=== PATIENT | female | born 1970 | race Caucasian/White ===

== ENCOUNTER 2017-10-17 19:32 | Inpatient (IN) | payer MEDICAID ==
[2017-10-17] MEDS: morphine 2 MG INJ IV (19:58)
[2017-10-17] MEDS: ONDANSETRON 4 MG INJ IV (19:58)
[2017-10-17] MEDS: LORAZEPAM 2 MG INJ IV (19:59)
[2017-10-17] MEDS: NITROGLYCERIN 2% 1 GM OINT PKT TD (19:59)
[2017-10-17] MEDS: ASPIRIN 81 MG TAB PO (20:00)
[2017-10-17 20:23] LABS: ADD MAN DIFF? NO
[2017-10-17 20:25] LABS: BASOPHIL # 0.1 10^3/ul (0.0-0.1); BASOPHILS % 0.4 % (0.0-2.0); EOSINOPHILS # 0.2 10^3/ul (0.0-0.5); EOSINOPHILS % 1.2 % (0.0-7.0); HEMATOCRIT 27.9 % (37.0-47.0); LYMPHOCYTES # 1.6 10^3/ul (0.8-2.9); LYMPHOCYTES % 12.6 % (15.0-51.0); MEAN CORPUSCULAR HEMOGLOBIN 30.5 pg (29.0-33.0); MEAN CORPUSCULAR HGB CONC 32.3 g/dl (32.0-37.0); MEAN CORPUSCULAR VOLUME 94.6 fl (82.0-101.0); MEAN PLATELET VOLUME 10.9 fl (7.4-10.4); MONOCYTE # 0.5 10^3/ul (0.3-0.9); MONOCYTES % 3.6 % (0.0-11.0); NEUTROPHIL # 10.6 10^3/ul (1.6-7.5); NEUTROPHILS % 81.7 % (39.0-77.0); PLATELET COUNT 234 10^3/UL (140-415); RED BLOOD COUNT 2.95 10^6/ul (4.20-5.40); RED CELL DISTRIBUTION WIDTH 12.3 % (11.5-14.5)
[2017-10-17 20:25] LABS: WHITE BLOOD COUNT 12.9 10^3/ul (4.8-10.8)
[2017-10-17 20:42] LABS: ALANINE AMINOTRANSFERASE 10 IU/L (13-69); ALBUMIN 4.1 g/dl (3.3-4.9); ALBUMIN/GLOBULIN RATIO 1.13; ALKALINE PHOSPHATASE 57 IU/L (42-121); ANION GAP 26 (8-16); ASPARTATE AMINO TRANSFERASE 22 IU/L (15-46); BLOOD UREA NITROGEN 91 mg/dl (7-20); CALCIUM 6.6 mg/dl (8.4-10.2); CARBON DIOXIDE 13 mmol/L (21-31); CHLORIDE 105 mmol/L (97-110); GLUCOSE 105 mg/dl (70-220); POTASSIUM 5.3 mmol/L (3.5-5.1); SODIUM 139 mmol/L (135-144); TOTAL PROTEIN 7.7 g/dl (6.1-8.1)
[2017-10-17 20:51] LABS: CREATININE 14.16 mg/dl (0.44-1.00)
[2017-10-17 20:54] LABS: TROPONIN-I 0.048 ng/ml (0.000-0.120)
[2017-10-17] MEDS: NICARDipine HCL 30 MG CAPSULE PO (21:05)
[2017-10-17] MEDS: ENOXAPARIN 100 MG/ML SYG SC (21:06)
[2017-10-17 21:11] LABS: B-TYPE NATRIURETIC PEPTIDE 55300 PG/ML (0-125)
[2017-10-17 21:52] LABS: D-DIMER 1729.85 ng/ml (<460)
[2017-10-17] MEDS: FUROSEMIDE 40 MG INJ IV (22:11)
[2017-10-17] MEDS ORDERED: ONDANSETRON 4 MG INJ IV (23:00)
[2017-10-17 23:04] LABS: COMPLEMENT C3 130 mg/dl (88-165); COMPLEMENT C4 45 mg/dl (14-44)
[2017-10-17] MEDS ORDERED: ALBUTEROL/IPRATROPIUM (NEB) 3 ML AMP NEB (23:30)
[2017-10-17] MEDS ORDERED: METOCLOPRAMIDE 10 MG INJ IV (23:30)
[2017-10-17] MEDS ORDERED: BISACODYL (EC) 5 MG TAB PO (23:30)
[2017-10-17] MEDS ORDERED: DOCUSATE SODIUM 100 MG CAP PO (23:30)
[2017-10-17 23:34] LABS: ERYTHROCYTE SEDIMENTATION RATE 130 mm/Hr (0-20)
[2017-10-18] MEDS ORDERED: hydrALAzine 20 MG INJ IV (01:30)
[2017-10-18 05:37] LABS: WHITE BLOOD COUNT 11.1 10^3/ul (4.8-10.8)
[2017-10-18 05:37] LABS: ADD MAN DIFF? NO; BASOPHILS % 0.2 % (0.0-2.0); EOSINOPHILS % 0.1 % (0.0-7.0); HEMATOCRIT 23.9 % (37.0-47.0); HEMOGLOBIN 7.8 g/dl (12.0-16.0); LYMPHOCYTES # 0.9 10^3/ul (0.8-2.9); LYMPHOCYTES % 8.1 % (15.0-51.0); MEAN CORPUSCULAR HEMOGLOBIN 30.7 pg (29.0-33.0); MEAN CORPUSCULAR HGB CONC 32.6 g/dl (32.0-37.0); MEAN CORPUSCULAR VOLUME 94.1 fl (82.0-101.0); MEAN PLATELET VOLUME 10.8 fl (7.4-10.4); MONOCYTE # 0.5 10^3/ul (0.3-0.9); MONOCYTES % 4.3 % (0.0-11.0); NEUTROPHIL # 9.6 10^3/ul (1.6-7.5); NEUTROPHILS % 86.8 % (39.0-77.0); PLATELET COUNT 192 10^3/UL (140-415); RED BLOOD COUNT 2.54 10^6/ul (4.20-5.40); RED CELL DISTRIBUTION WIDTH 12.4 % (11.5-14.5)
[2017-10-18 05:39] LABS: IRON 50 ug/dl (35-150)
[2017-10-18 05:42] LABS: HAAIG REFLEX REFLEX FILED
[2017-10-18 05:48] LABS: % IRON SATURATION 18 % SAT (22-52); TOTAL IRON BINDING CAPACITY 282 ug/dl (241-421)
[2017-10-18] MEDS: FUROSEMIDE 40 MG INJ IV ×2 (05:50→18:16)
[2017-10-18] MEDS: ACETAMINOPHEN 325 MG TAB PO (05:51)
[2017-10-18] MEDS: PANTOPRAZOLE 40 MG INJ IV (05:51)
[2017-10-18] MEDS ORDERED: HEPARIN 1000 UNITS/ML 10 ML INJ IV ×2 (07:00)
[2017-10-18 07:35] LABS: ALANINE AMINOTRANSFERASE 21 IU/L (13-69); ALBUMIN 3.1 g/dl (3.3-4.9); ALKALINE PHOSPHATASE 57 IU/L (42-121); ANION GAP 23 (8-16); ASPARTATE AMINO TRANSFERASE 14 IU/L (15-46); BLOOD UREA NITROGEN 94 mg/dl (7-20); CALCIUM 6.1 mg/dl (8.4-10.2); CARBON DIOXIDE 13 mmol/L (21-31); CHLORIDE 109 mmol/L (97-110); GLUCOSE 102 mg/dl (70-220); PHOSPHORUS 10.7 mg/dl (2.5-4.9); POTASSIUM 5.1 mmol/L (3.5-5.1); SODIUM 140 mmol/L (135-144); TOTAL PROTEIN 5.9 g/dl (6.1-8.1)
[2017-10-18 08:05] LABS: INR 1.09; PROTIME 14.3 Sec (11.9-14.9); PT RATIO 1.1
[2017-10-18 08:06] LABS: HEPATITIS B SURFACE ANTIGEN NEGATIVE (NEGATIVE); PARTIAL THROMBOPLASTIN TIME 37.1 Sec (25.0-35.0)
[2017-10-18 08:08] LABS: CREATININE 14.48 mg/dl (0.44-1.00)
[2017-10-18 08:24] LABS: HEPATITIS B CORE ANTIBODY NEGATIVE (NEGATIVE); HEPATITIS C VIRAL ANTIBODY NEGATIVE (NEGATIVE)
[2017-10-18] MEDS: HEPARIN 1000 UNITS/ML 10 ML INJ IV (08:44)
[2017-10-18] MEDS: HEPARIN 25000 UNITS/250 ML 250 ML IV (08:50)
[2017-10-18 13:54] LABS: Allen Test ACCEPTAB; Arterial Base Excess -12.5 mmol/L (-3.0-3); Arterial Blood Gas Oxygen Sat 92.8 mmHG (95.0-98.0); Arterial COHb 0.3 % (0.0-3.0); Arterial Fraction of Oxyhgb 92.3 % (93.0-99.0); Arterial HCO3 12.8 mmol/L (22.0-26.0); Arterial MetHb 0.2 % (0.0-1.5); Arterial Total Hemglobin 8.6 g/dl (12.0-18.0); Arterial pCO2 27.5 mmhg (35-45); MODE ROOM AIR; Site Right Radial
[2017-10-18] MEDS: DEXTROSE 5% 500 ML IV (14:19)
[2017-10-18] MEDS: LORAZEPAM 0.5 MG TAB PO (14:27)
[2017-10-18] MEDS: METOPROLOL 25 MG TAB PO ×2 (14:27→21:44)
[2017-10-18] MEDS: AMLODIPINE 10 MG TAB PO (14:27)
[2017-10-18] MEDS: SODIUM BICARBONATE (IV ADD) 100 MEQ in DEXTROSE 5% 900 ML IV (14:30)
[2017-10-18 15:21] LABS: LACTIC ACID 1.1 mmol/L (0.5-2.0)
[2017-10-18 15:50] LABS: PARTIAL THROMBOPLASTIN TIME > 180.0 Sec (25.0-35.0)
[2017-10-18 18:15] LABS: ADD UMIC YES; UR ASCORBIC ACID NEGATIVE (NEGATIVE); UR BILIRUBIN (Dip) NEGATIVE (NEGATIVE); UR BLOOD (Dip) NEGATIVE (NEGATIVE); UR CLARITY SLIGHTLY CLOUDY (CLEAR); UR COLOR YELLOW (YELLOW); UR GLUCOSE (Dip) 3+ mg/dL (NEGATIVE); UR KETONES (Dip) NEGATIVE (NEGATIVE); UR LEUKOCYTE ESTERASE (Dip) NEGATIVE Leu/ul (NEGATIVE); UR NITRITE (Dip) NEGATIVE (NEGATIVE); UR RBC 7 /HPF (0-5); UR SPECIFIC GRAVITY (Dip) 1.013 (1.003-1.030); UR SQUAMOUS EPITHELIAL CELL MODERATE /HPF (FEW); UR TOTAL PROTEIN (Dip) 3+ mg/dl (NEGATIVE); UR UROBILINOGEN (Dip) NEGATIVE (NEGATIVE); UR WBC 9 /HPF (0-5)
[2017-10-18 18:19] LABS: CREATININE,URINE RANDOM 63.14 mg/dl (20-320)
[2017-10-18 18:21] LABS: SODIUM,URINE RANDOM 40 mmol/L (30-90)
[2017-10-18 18:21] LABS: CREATININE,URINE RANDOM 64.36 mg/dl (20-320)
[2017-10-18 18:30] LABS: PROTEIN URINE > 600.0 mg/dl (0.0-11.9)
[2017-10-18 19:04] LABS: OSMOLALITY,URINE 315 mOsm/kg (250-1200)
[2017-10-19] MEDS ORDERED: ALBUMIN HUMAN 25% 100 ML IV (00:30)
[2017-10-19] MEDS: DIPHENHYDRAMINE 50 MG CAP PO (01:15)
[2017-10-19] MEDS: HEPARIN 1000 UNITS/ML 10 ML INJ CATHETER ×2 (02:45→20:57)
[2017-10-19] MEDS: FUROSEMIDE 40 MG INJ IV ×2 (06:28→21:09)
[2017-10-19] MEDS: ACETAMINOPHEN 650MG/20.3ML CUP PO (06:31)
[2017-10-19 07:27] LABS: ADD MAN DIFF? NO
[2017-10-19 07:32] LABS: WHITE BLOOD COUNT 7.6 10^3/ul (4.8-10.8)
[2017-10-19 07:32] LABS: BASOPHILS % 0.4 % (0.0-2.0); EOSINOPHILS # 0.1 10^3/ul (0.0-0.5); EOSINOPHILS % 1.2 % (0.0-7.0); HEMATOCRIT 22.8 % (37.0-47.0); HEMOGLOBIN 7.7 g/dl (12.0-16.0); LYMPHOCYTES % 12.7 % (15.0-51.0); MEAN CORPUSCULAR HEMOGLOBIN 30.9 pg (29.0-33.0); MEAN CORPUSCULAR HGB CONC 33.8 g/dl (32.0-37.0); MEAN CORPUSCULAR VOLUME 91.6 fl (82.0-101.0); MEAN PLATELET VOLUME 10.4 fl (7.4-10.4); MONOCYTE # 0.4 10^3/ul (0.3-0.9); MONOCYTES % 5.6 % (0.0-11.0); NEUTROPHIL # 6.1 10^3/ul (1.6-7.5); NEUTROPHILS % 79.8 % (39.0-77.0); PLATELET COUNT 188 10^3/UL (140-415); RED BLOOD COUNT 2.49 10^6/ul (4.20-5.40); RED CELL DISTRIBUTION WIDTH 12.4 % (11.5-14.5)
[2017-10-19 07:40] LABS: ANION GAP 16 (8-16); BLOOD UREA NITROGEN 62 mg/dl (7-20); CALCIUM 6.7 mg/dl (8.4-10.2); CARBON DIOXIDE 23 mmol/L (21-31); CHLORIDE 101 mmol/L (97-110); CREATININE 11.43 mg/dl (0.44-1.00); GLUCOSE 122 mg/dl (70-220); MAGNESIUM 1.4 mg/dl (1.7-2.5); PHOSPHORUS 8.1 mg/dl (2.5-4.9); POTASSIUM 3.4 mmol/L (3.5-5.1); SODIUM 137 mmol/L (135-144)
[2017-10-19 08:48] LABS: INR 1.09; PROTIME 14.2 Sec (11.9-14.9); PT RATIO 1.1
[2017-10-19 08:49] LABS: PARTIAL THROMBOPLASTIN TIME 33.2 Sec (25.0-35.0)
[2017-10-19] MEDS: MULTIVIT/CA CARB/B CMPLX/FA TAB PO (10:36)
[2017-10-19] MEDS: AMLODIPINE 10 MG TAB PO (10:36)
[2017-10-19] MEDS: METOPROLOL 25 MG TAB PO (10:37)
[2017-10-19] MEDS: MAGNESIUM SULFATE 2 GM/50 ML 50 ML IVPB (10:46)
[2017-10-19] MEDS: POTASSIUM CHLORIDE (SR) 20 MEQ TAB PO (10:46)
[2017-10-19] MEDS ORDERED: SOD CHLORIDE 0.9% 1,000 ML IV (12:13)
[2017-10-19] MEDS ORDERED: MANNITOL 25% 50 ML IV (12:30)
[2017-10-19] MEDS ORDERED: ALBUMIN HUMAN 25% 50 ML IV (12:30)
[2017-10-19] MEDS: MAGNESIUM OXIDE 400 MG TAB NGT ×2 (13:03→21:10)
[2017-10-19 14:17] LABS: ANA SCREEN POSITIVE (NEGATIVE)
[2017-10-19] MEDS: CALCIUM ACETATE 667 MG CAP PO (17:18)
[2017-10-19] MEDS: DIPHENHYDRAMINE 25 MG CAP PO (17:24)
[2017-10-19 18:57] LABS: CREATINE KINASE 125 IU/L (23-200)
[2017-10-19 19:10] LABS: CK INDEX 1.3; CK-MB 1.67 ng/ml (0.0-2.4)
[2017-10-19 19:15] LABS: TROPONIN-I 0.271 ng/ml (0.000-0.120)
[2017-10-19] MEDS: LOSARTAN 25 MG TAB PO (21:10)
[2017-10-20 00:57] LABS: CREATINE KINASE 103 IU/L (23-200)
[2017-10-20 01:09] LABS: CK INDEX 1.2; CK-MB 1.24 ng/ml (0.0-2.4)
[2017-10-20 01:18] LABS: TROPONIN-I 0.237 ng/ml (0.000-0.120)
[2017-10-20] MEDS: FUROSEMIDE 40 MG INJ IV ×2 (05:07→17:31)
[2017-10-20] MEDS: CALCIUM ACETATE 667 MG CAP PO ×3 (07:55→17:27)
[2017-10-20 07:58] LABS: ANION GAP 16 (8-16); BLOOD UREA NITROGEN 42 mg/dl (7-20); CALCIUM 8.2 mg/dl (8.4-10.2); CARBON DIOXIDE 27 mmol/L (21-31); CHLORIDE 102 mmol/L (97-110); CREATININE 9.01 mg/dl (0.44-1.00); GLUCOSE 104 mg/dl (70-220); MAGNESIUM 1.8 mg/dl (1.7-2.5); PHOSPHORUS 6.4 mg/dl (2.5-4.9); POTASSIUM 4.4 mmol/L (3.5-5.1); SODIUM 141 mmol/L (135-144)
[2017-10-20] MEDS: MULTIVIT/CA CARB/B CMPLX/FA TAB PO (08:06)
[2017-10-20] MEDS: MAGNESIUM OXIDE 400 MG TAB NGT ×2 (08:07→21:09)
[2017-10-20] MEDS: AMLODIPINE 10 MG TAB PO (08:07)
[2017-10-20] MEDS: LOSARTAN 25 MG TAB PO ×2 (08:07→21:09)
[2017-10-20 08:11] LABS: ANA PATTERN NUCLEOLAR
[2017-10-20 09:04] LABS: HIV 1&2 ANTIBODY NEGATIVE (NEGATIVE)
[2017-10-20 09:45] LABS: CREATINE KINASE 101 IU/L (23-200)
[2017-10-20 09:49] LABS: CK-MB 1.02 ng/ml (0.0-2.4)
[2017-10-20 09:53] LABS: TROPONIN-I 0.251 ng/ml (0.000-0.120)
[2017-10-20] MEDS: REGADENOSON 0.4 MG/5 ML SYG (11:40)
[2017-10-20] MEDS: ASPIRIN 81 MG TAB PO (13:12)
[2017-10-20] MEDS: EPOETIN 3000 UNITS/1 ML INJ (ESRD) SC (17:34)
[2017-10-21] MEDS: FUROSEMIDE 40 MG INJ IV ×2 (05:43→18:01)
[2017-10-21] MEDS: CALCIUM ACETATE 667 MG CAP PO ×3 (08:22→18:00)
[2017-10-21] MEDS: MULTIVIT/CA CARB/B CMPLX/FA TAB PO (08:38)
[2017-10-21] MEDS: LOSARTAN 25 MG TAB PO (08:38)
[2017-10-21] MEDS: CALCITRIOL 0.25 MCG CAP PO (08:38)
[2017-10-21] MEDS: MAGNESIUM OXIDE 400 MG TAB NGT ×2 (08:39→22:25)
[2017-10-21] MEDS: AMLODIPINE 10 MG TAB PO (08:39)
[2017-10-21] MEDS: ASPIRIN 81 MG TAB PO (08:39)
[2017-10-21 10:28] LABS: ADD MAN DIFF? NO
[2017-10-21 10:30] LABS: BASOPHILS % 0.3 % (0.0-2.0); EOSINOPHILS # 0.2 10^3/ul (0.0-0.5); EOSINOPHILS % 2.9 % (0.0-7.0); HEMATOCRIT 22.9 % (37.0-47.0); HEMOGLOBIN 7.4 g/dl (12.0-16.0); LYMPHOCYTES # 0.9 10^3/ul (0.8-2.9); LYMPHOCYTES % 15.4 % (15.0-51.0); MEAN CORPUSCULAR HEMOGLOBIN 30.3 pg (29.0-33.0); MEAN CORPUSCULAR HGB CONC 32.3 g/dl (32.0-37.0); MEAN CORPUSCULAR VOLUME 93.9 fl (82.0-101.0); MEAN PLATELET VOLUME 10.4 fl (7.4-10.4); MONOCYTE # 0.4 10^3/ul (0.3-0.9); MONOCYTES % 6.8 % (0.0-11.0); NEUTROPHIL # 4.4 10^3/ul (1.6-7.5); NEUTROPHILS % 74.3 % (39.0-77.0); PLATELET COUNT 189 10^3/UL (140-415); RED BLOOD COUNT 2.44 10^6/ul (4.20-5.40); RED CELL DISTRIBUTION WIDTH 12.2 % (11.5-14.5)
[2017-10-21 10:30] LABS: WHITE BLOOD COUNT 5.9 10^3/ul (4.8-10.8)
[2017-10-21 10:57] LABS: ANION GAP 15 (8-16); BLOOD UREA NITROGEN 60 mg/dl (7-20); CALCIUM 7.9 mg/dl (8.4-10.2); CARBON DIOXIDE 25 mmol/L (21-31); CHLORIDE 102 mmol/L (97-110); CREATININE 11.55 mg/dl (0.44-1.00); GLUCOSE 177 mg/dl (70-220); POTASSIUM 3.9 mmol/L (3.5-5.1); SODIUM 138 mmol/L (135-144)
[2017-10-21] MEDS ORDERED: SODIUM CHLORIDE 0.9% 1L BAG IV (18:00)
[2017-10-21] MEDS ORDERED: ALBUMIN HUMAN 25% 100 ML IV (18:00)
[2017-10-21] MEDS: LOSARTAN 50 MG TAB PO (21:00)
[2017-10-22] MEDS: DIPHENHYDRAMINE 25 MG CAP PO (04:09)
[2017-10-22 05:34] LABS: ANION GAP 15 (8-16); BLOOD UREA NITROGEN 73 mg/dl (7-20); CALCIUM 7.7 mg/dl (8.4-10.2); CARBON DIOXIDE 23 mmol/L (21-31); CHLORIDE 104 mmol/L (97-110); CREATININE 11.77 mg/dl (0.44-1.00); GLUCOSE 89 mg/dl (70-220); PHOSPHORUS 6.9 mg/dl (2.5-4.9); POTASSIUM 4.3 mmol/L (3.5-5.1); SODIUM 138 mmol/L (135-144)
[2017-10-22] MEDS: FUROSEMIDE 40 MG INJ IV ×2 (06:00→17:25)
[2017-10-22] MEDS: HEPARIN 1000 UNITS/ML 10 ML INJ CATHETER (08:12)
[2017-10-22] MEDS: MULTIVIT/CA CARB/B CMPLX/FA TAB PO (09:00)
[2017-10-22] MEDS: CALCITRIOL 0.25 MCG CAP PO (09:29)
[2017-10-22] MEDS: ASPIRIN 81 MG TAB PO (09:29)
[2017-10-22] MEDS: MAGNESIUM OXIDE 400 MG TAB NGT ×2 (09:30→20:31)
[2017-10-22] MEDS: CALCIUM ACETATE 667 MG CAP PO ×3 (09:30→18:19)
[2017-10-22] MEDS: AMLODIPINE 10 MG TAB PO (12:47)
[2017-10-22] MEDS: ACETAMINOPHEN 650MG/20.3ML CUP PO (12:48)
[2017-10-22] MEDS: LOSARTAN 50 MG TAB PO ×2 (12:48→20:31)
[2017-10-22] MEDS: EPOETIN 4000 UNITS/1 ML INJ (ESRD) SC (17:16)
[2017-10-22] MEDS: FAMOTIDINE 20 MG TAB PO (18:23)
[2017-10-23] MEDS: FUROSEMIDE 40 MG INJ IV ×2 (05:36→17:49)
[2017-10-23] MEDS: CALCITRIOL 0.25 MCG CAP PO (08:47)
[2017-10-23] MEDS: FAMOTIDINE 20 MG TAB PO (08:47)
[2017-10-23] MEDS: ASPIRIN 81 MG TAB PO (08:47)
[2017-10-23] MEDS: MULTIVIT/CA CARB/B CMPLX/FA TAB PO (08:48)
[2017-10-23] MEDS: CALCIUM ACETATE 667 MG CAP PO ×3 (08:48→17:49)
[2017-10-23] MEDS: MAGNESIUM OXIDE 400 MG TAB NGT ×2 (08:48→21:28)
[2017-10-23] MEDS: AMLODIPINE 10 MG TAB PO (08:49)
[2017-10-23] MEDS: LOSARTAN 50 MG TAB PO ×2 (13:13→21:30)
[2017-10-23] MEDS ORDERED: AL HYDROX/MG HYDROX/SIMETH 30 ML CUP PO (21:00)
[2017-10-23] MEDS: PANTOPRAZOLE (EC) 40 MG TAB PO (21:36)
[2017-10-23] MEDS: DIPHENHYDRAMINE 25 MG CAP PO (23:50)
[2017-10-24 05:29] LABS: ADD MAN DIFF? NO
[2017-10-24 05:33] LABS: BASOPHILS % 0.5 % (0.0-2.0); EOSINOPHILS # 0.2 10^3/ul (0.0-0.5); EOSINOPHILS % 2.5 % (0.0-7.0); HEMATOCRIT 23.8 % (37.0-47.0); HEMOGLOBIN 7.8 g/dl (12.0-16.0); LYMPHOCYTES # 1.8 10^3/ul (0.8-2.9); LYMPHOCYTES % 20.9 % (15.0-51.0); MEAN CORPUSCULAR HEMOGLOBIN 31.1 pg (29.0-33.0); MEAN CORPUSCULAR HGB CONC 32.8 g/dl (32.0-37.0); MEAN CORPUSCULAR VOLUME 94.8 fl (82.0-101.0); MEAN PLATELET VOLUME 10.7 fl (7.4-10.4); MONOCYTE # 0.6 10^3/ul (0.3-0.9); MONOCYTES % 6.5 % (0.0-11.0); NEUTROPHILS % 69.4 % (39.0-77.0); PLATELET COUNT 224 10^3/UL (140-415); RED BLOOD COUNT 2.51 10^6/ul (4.20-5.40)
[2017-10-24 05:33] LABS: WHITE BLOOD COUNT 8.6 10^3/ul (4.8-10.8)
[2017-10-24 05:58] LABS: ANION GAP 18 (8-16); BLOOD UREA NITROGEN 67 mg/dl (7-20); CALCIUM 8.8 mg/dl (8.4-10.2); CARBON DIOXIDE 24 mmol/L (21-31); CHLORIDE 101 mmol/L (97-110); CREATININE 10.44 mg/dl (0.44-1.00); GLUCOSE 91 mg/dl (70-220); POTASSIUM 5.3 mmol/L (3.5-5.1); SODIUM 138 mmol/L (135-144)
[2017-10-24] MEDS: PANTOPRAZOLE (EC) 40 MG TAB PO (07:01)
[2017-10-24] MEDS: FUROSEMIDE 40 MG INJ IV ×2 (07:03→21:06)
[2017-10-24] MEDS: ASPIRIN 81 MG TAB PO (09:29)
[2017-10-24] MEDS: MAGNESIUM OXIDE 400 MG TAB NGT ×2 (09:29→21:04)
[2017-10-24] MEDS: CALCITRIOL 0.25 MCG CAP PO (09:29)
[2017-10-24] MEDS: FAMOTIDINE 20 MG TAB PO (09:30)
[2017-10-24] MEDS: MULTIVIT/CA CARB/B CMPLX/FA TAB PO (09:30)
[2017-10-24] MEDS: AMLODIPINE 10 MG TAB PO (09:30)
[2017-10-24] MEDS: CALCIUM ACETATE 667 MG CAP PO ×3 (09:30→21:03)
[2017-10-24] MEDS: LOSARTAN 50 MG TAB PO ×2 (09:31→21:05)
[2017-10-24] MEDS ORDERED: MAGNESIUM HYDROXIDE 30ML CUP PO (12:30)
[2017-10-24] MEDS ORDERED: LIDOCAINE 1% (MDV) 20 ML INJ (12:54)
[2017-10-24] MEDS ORDERED: HEPARIN 1000 UNITS/ML 10 ML INJ (12:54)
[2017-10-24] MEDS ORDERED: MIDAZOLAM 1 MG/ML 2 ML INJ (12:55)
[2017-10-24] MEDS ORDERED: FENTAnyl 50 MCG/ML VIAL (12:55)
[2017-10-24] MEDS: DIPHENHYDRAMINE 25 MG CAP PO (16:05)
[2017-10-24] MEDS: HEPARIN 1000 UNITS/ML 10 ML INJ CATHETER (19:47)
[2017-10-24] MEDS ORDERED: VITAMIN A & D 5 GM OINT PACKET TOP (22:19)
[2017-10-25 05:51] LABS: ADD MAN DIFF? NO
[2017-10-25 06:02] LABS: WHITE BLOOD COUNT 8.6 10^3/ul (4.8-10.8)
[2017-10-25 06:02] LABS: BASOPHILS % 0.4 % (0.0-2.0); EOSINOPHILS # 0.2 10^3/ul (0.0-0.5); EOSINOPHILS % 2.3 % (0.0-7.0); HEMATOCRIT 25.3 % (37.0-47.0); LYMPHOCYTES # 1.5 10^3/ul (0.8-2.9); MEAN CORPUSCULAR HEMOGLOBIN 29.9 pg (29.0-33.0); MEAN CORPUSCULAR HGB CONC 31.6 g/dl (32.0-37.0); MEAN CORPUSCULAR VOLUME 94.4 fl (82.0-101.0); MEAN PLATELET VOLUME 10.8 fl (7.4-10.4); MONOCYTE # 0.5 10^3/ul (0.3-0.9); MONOCYTES % 5.8 % (0.0-11.0); NEUTROPHIL # 6.3 10^3/ul (1.6-7.5); NEUTROPHILS % 74.1 % (39.0-77.0); PLATELET COUNT 236 10^3/UL (140-415); RED BLOOD COUNT 2.68 10^6/ul (4.20-5.40); RED CELL DISTRIBUTION WIDTH 12.2 % (11.5-14.5)
[2017-10-25] MEDS: PANTOPRAZOLE (EC) 40 MG TAB PO (06:17)
[2017-10-25] MEDS: FUROSEMIDE 40 MG INJ IV (06:19)
[2017-10-25 06:22] LABS: ALANINE AMINOTRANSFERASE 17 IU/L (13-69); ALBUMIN 3.2 g/dl (3.3-4.9); ALKALINE PHOSPHATASE 55 IU/L (42-121); ASPARTATE AMINO TRANSFERASE 13 IU/L (15-46)
[2017-10-25 06:31] LABS: MAGNESIUM 2.1 mg/dl (1.7-2.5)
[2017-10-25 07:56] LABS: LIPASE 221 U/L (23-300)
[2017-10-25] MEDS: CALCIUM ACETATE 667 MG CAP PO ×3 (08:18→18:06)
[2017-10-25] MEDS: ASPIRIN 81 MG TAB PO (08:18)
[2017-10-25] MEDS: AMLODIPINE 10 MG TAB PO (08:18)
[2017-10-25] MEDS: MULTIVIT/CA CARB/B CMPLX/FA TAB PO (08:19)
[2017-10-25] MEDS: FAMOTIDINE 20 MG TAB PO (08:19)
[2017-10-25] MEDS: CALCITRIOL 0.25 MCG CAP PO (08:19)
[2017-10-25] MEDS: LOSARTAN 50 MG TAB PO ×2 (08:19→21:24)
[2017-10-25] MEDS: MAGNESIUM OXIDE 400 MG TAB NGT ×2 (08:20→21:25)
[2017-10-25] MEDS ORDERED: HEPARIN 1000 UNITS/ML 10 ML INJ CATHETER (11:00)
[2017-10-25] MEDS ORDERED: SODIUM CHLORIDE 0.9% 1L BAG IV (11:00)
[2017-10-25] MEDS ORDERED: ALBUMIN HUMAN 25% 50 ML IV (11:00)
[2017-10-25] MEDS: EPOETIN 4000 UNITS/1 ML INJ (ESRD) SC ×2 (17:00→18:09)
[2017-10-26 06:15] LABS: ADD MAN DIFF? NO
[2017-10-26] MEDS: PANTOPRAZOLE (EC) 40 MG TAB PO (06:16)
[2017-10-26 06:35] LABS: BASOPHILS % 0.5 % (0.0-2.0); EOSINOPHILS # 0.2 10^3/ul (0.0-0.5); HEMATOCRIT 25.8 % (37.0-47.0); HEMOGLOBIN 8.2 g/dl (12.0-16.0); LYMPHOCYTES # 1.6 10^3/ul (0.8-2.9); LYMPHOCYTES % 19.3 % (15.0-51.0); MEAN CORPUSCULAR HEMOGLOBIN 30.1 pg (29.0-33.0); MEAN CORPUSCULAR HGB CONC 31.8 g/dl (32.0-37.0); MEAN CORPUSCULAR VOLUME 94.9 fl (82.0-101.0); MEAN PLATELET VOLUME 10.8 fl (7.4-10.4); MONOCYTE # 0.5 10^3/ul (0.3-0.9); MONOCYTES % 5.5 % (0.0-11.0); NEUTROPHIL # 6.1 10^3/ul (1.6-7.5); NEUTROPHILS % 72.5 % (39.0-77.0); PLATELET COUNT 244 10^3/UL (140-415); RED BLOOD COUNT 2.72 10^6/ul (4.20-5.40); RED CELL DISTRIBUTION WIDTH 12.4 % (11.5-14.5)
[2017-10-26 06:35] LABS: WHITE BLOOD COUNT 8.4 10^3/ul (4.8-10.8)
[2017-10-26 06:38] LABS: MAGNESIUM 2.5 mg/dl (1.7-2.5)
[2017-10-26 06:38] LABS: PHOSPHORUS 6.7 mg/dl (2.5-4.9)
[2017-10-26 07:03] LABS: ANION GAP 18 (8-16); BLOOD UREA NITROGEN 66 mg/dl (7-20); CALCIUM 9.2 mg/dl (8.4-10.2); CARBON DIOXIDE 25 mmol/L (21-31); CHLORIDE 100 mmol/L (97-110); CREATININE 10.11 mg/dl (0.44-1.00); GLUCOSE 92 mg/dl (70-220); POTASSIUM 4.6 mmol/L (3.5-5.1); SODIUM 138 mmol/L (135-144)
[2017-10-26] MEDS: LOSARTAN 50 MG TAB PO ×2 (09:00→20:32)
[2017-10-26] MEDS: AMLODIPINE 10 MG TAB PO (09:00)
[2017-10-26] MEDS: MAGNESIUM OXIDE 400 MG TAB NGT (09:08)
[2017-10-26] MEDS: FAMOTIDINE 20 MG TAB PO (09:08)
[2017-10-26] MEDS: CALCITRIOL 0.25 MCG CAP PO (09:09)
[2017-10-26] MEDS: MULTIVIT/CA CARB/B CMPLX/FA TAB PO (09:10)
[2017-10-26] MEDS: ASPIRIN 81 MG TAB PO (09:10)
[2017-10-26] MEDS: FUROSEMIDE 40 MG TAB PO (09:11)
[2017-10-26] MEDS: CALCIUM ACETATE 667 MG CAP PO ×3 (09:18→18:50)
[2017-10-26] MEDS: DIPHENHYDRAMINE 25 MG CAP PO (14:01)
[2017-10-26] MEDS: HEPARIN 1000 UNITS/ML 10 ML INJ CATHETER (18:09)
[2017-10-26] MEDS: EPOETIN 4000 UNITS/1 ML INJ (ESRD) SC (20:35)
[2017-10-27 05:34] LABS: ADD MAN DIFF? NO
[2017-10-27 05:39] LABS: BASOPHILS % 0.4 % (0.0-2.0); EOSINOPHILS # 0.2 10^3/ul (0.0-0.5); EOSINOPHILS % 2.2 % (0.0-7.0); HEMATOCRIT 24.8 % (37.0-47.0); LYMPHOCYTES # 1.6 10^3/ul (0.8-2.9); LYMPHOCYTES % 20.1 % (15.0-51.0); MEAN CORPUSCULAR HEMOGLOBIN 30.4 pg (29.0-33.0); MEAN CORPUSCULAR HGB CONC 32.3 g/dl (32.0-37.0); MEAN CORPUSCULAR VOLUME 94.3 fl (82.0-101.0); MEAN PLATELET VOLUME 10.5 fl (7.4-10.4); MONOCYTE # 0.5 10^3/ul (0.3-0.9); MONOCYTES % 6.2 % (0.0-11.0); NEUTROPHIL # 5.5 10^3/ul (1.6-7.5); NEUTROPHILS % 70.7 % (39.0-77.0); PLATELET COUNT 233 10^3/UL (140-415); RED BLOOD COUNT 2.63 10^6/ul (4.20-5.40); RED CELL DISTRIBUTION WIDTH 12.3 % (11.5-14.5)
[2017-10-27 05:39] LABS: WHITE BLOOD COUNT 7.8 10^3/ul (4.8-10.8)
[2017-10-27] MEDS: PANTOPRAZOLE (EC) 40 MG TAB PO (05:51)
[2017-10-27 06:11] LABS: ANION GAP 14 (8-16); BLOOD UREA NITROGEN 39 mg/dl (7-20); CARBON DIOXIDE 29 mmol/L (21-31); CHLORIDE 99 mmol/L (97-110); CREATININE 6.98 mg/dl (0.44-1.00); GLUCOSE 90 mg/dl (70-220); POTASSIUM 4.5 mmol/L (3.5-5.1); SODIUM 137 mmol/L (135-144)
[2017-10-27] MEDS: CALCIUM ACETATE 667 MG CAP PO ×2 (08:16→11:58)
[2017-10-27] MEDS: ASPIRIN 81 MG TAB PO (08:16)
[2017-10-27] MEDS: MULTIVIT/CA CARB/B CMPLX/FA TAB PO (08:16)
[2017-10-27] MEDS: AMLODIPINE 10 MG TAB PO (08:18)
[2017-10-27] MEDS: FUROSEMIDE 40 MG TAB PO (08:18)
[2017-10-27] MEDS: FAMOTIDINE 20 MG TAB PO (08:19)
[2017-10-27] MEDS: CALCITRIOL 0.25 MCG CAP PO (08:19)
[2017-10-27] MEDS: LOSARTAN 50 MG TAB PO (08:20)
== END 2017-10-27 13:00 | disposition home or self-care (01) | DRG 291 ==
LOC: TEL 10-20 01:29 → MS1 10-22 00:37 → E/R 19:32 → ICU 22:38
PROC: 5A1D70Z Performance of Urinary Filtration, Intermittent, Less than 6 Hours Per Day (ICD-10-PCS; principal; 2017-10-24 13:00)
PROC: 05HM33Z Insertion of Infusion Device into Right Internal Jugular Vein, Percutaneous Approach (ICD-10-PCS; 2017-10-24 13:00)
DX: I13.2 Hypertensive heart and chronic kidney disease with heart failure and with stage 5 chronic kidney disease, or end stage renal disease (principal); N18.6 End stage renal disease; I50.23 Acute on chronic systolic (congestive) heart failure; N18.4 Chronic kidney disease, stage 4 (severe); N17.9 Acute kidney failure, unspecified; N25.81 Secondary hyperparathyroidism of renal origin; I16.1 Hypertensive emergency; E87.2 Acidosis; D63.1 Anemia in chronic kidney disease; E83.51 Hypocalcemia; E87.5 Hyperkalemia; R09.02 Hypoxemia; E78.5 Hyperlipidemia, unspecified; Z91.19 Patient's noncompliance with other medical treatment and regimen; Z99.2 Dependence on renal dialysis; E83.39 Other disorders of phosphorus metabolism; I42.8 Other cardiomyopathies; K21.9 Gastro-esophageal reflux disease without esophagitis; R19.7 Diarrhea, unspecified; E66.9 Obesity, unspecified; Z68.36 Body mass index [BMI] 36.0-36.9, adult
CPT/HCPCS: 36415; 36600; 71045; 76775; 78452; 78582; 80048; 80053; 80076; 81001; 81003; 82550; 82553; 82570; 82803; 83540; 83605; 83690; 83735; 83880; 83935; 83970; 84100; 84155; 84300; 84484; 84703; 85025; 85378; 85610; 85651; 85730; 86038; 86160; 86703; 86704; 86709; 86803; 87045; 87081; 87338; 87340; 89190; 90935; 93005; 93017; 93306; 93970; 96372; 96374; 96375; 99285-25